=== PATIENT | male | born 1955 | race Caucasian/White ===

== ENCOUNTER 2018-02-23 08:02 | Emergency (ER) | payer BC, OTHER ==
[2018-02-23] MEDS ORDERED: ASPIRIN 81 MG TABLET, CHEWABLE PO ONE (08:23)
[2018-02-23 08:45] LABS: ABSOLUTE EOSINOPHILS # (AUTO) 0.1 10^3/uL (0.0-0.6); ABSOLUTE LYMPHOCYTES (AUTO) 1.8 10^3/uL (0.5-4.7); ABSOLUTE MONOCYTES (AUTO) 0.3 10^3/uL (0.1-1.4); ABSOLUTE NEUT (AUTO) 2.9 10^3/uL (1.7-8.2); BASOPHILS % (AUTO) 0.6 % (0-2); HEMATOCRIT 43.8 % (37.9-51.0); HEMOGLOBIN 14.5 g/dL (13.5-17.0); LYMPHOCYTES % (AUTO) 34.2 % (13-45); MEAN CORPUSCULAR HEMOGLOBIN 28.2 pg (27.0-33.4); MEAN CORPUSCULAR HGB CONC 33.1 g/dL (32.0-36.0); MEAN CORPUSCULAR VOLUME 85 fl (80-97); MONOCYTES % (AUTO) 5.9 % (3-13); PLATELET COUNT 222 10^3/uL (150-450); RED BLOOD COUNT 5.15 10^6/uL (4.35-5.55); RED CELL DISTRIBUTION WIDTH 13.5 % (11.5-14.0); SEGMENTED NEUTROPHILS % (AUTO) 57.3 % (42-78); TOTAL CELLS COUNTED % (AUTO) 100 %; WHITE BLOOD COUNT 5.2 10^3/uL (4.0-10.5)
--- NOTE | 2018-02-23 08:50 | RADIOLOGY REPORT (SQ) ---
EXAM DESCRIPTION: CHEST SINGLE VIEW COMPLETED DATE/TIME: 02/23/2018 8:43 am REASON FOR STUDY: cp COMPARISON: None. EXAM PARAMETERS: NUMBER OF VIEWS: One view. TECHNIQUE: Single frontal radiographic view of the chest acquired. RADIATION DOSE: NA LIMITATIONS: None. FINDINGS: LUNGS AND PLEURA: No opacities, masses or pneumothorax. No pleural effusion. MEDIASTINUM AND HILAR STRUCTURES: No masses. Contour normal. HEART AND VASCULAR STRUCTURES: Heart normal in size. Normal vasculature. BONES: No acute findings. HARDWARE: None in the chest. OTHER: No other significant finding. IMPRESSION: NO ACUTE RADIOGRAPHIC FINDING IN THE CHEST. TECHNICAL DOCUMENTATION: JOB ID: [id number] [employer]- All Rights Reserved Reading location - IP/workstation name: [email or web address]
[2018-02-23 08:53] LABS: ALANINE AMINOTRANSFERASE 42 U/L (21-72); ALBUMIN 4.6 g/dL (3.5-5.0); ALKALINE PHOSPHATASE 38 U/L (38-126); ANION GAP 9 (5-19); ASPARTATE AMINO TRANSFERASE 33 U/L (17-59); BILIRUBIN,DIRECT 0.2 mg/dL (0.0-0.4); BILIRUBIN,TOTAL 0.4 mg/dL (0.2-1.3); BLOOD UREA NITROGEN 16 mg/dL (7-20); CALCIUM 9.6 mg/dL (8.4-10.2); CARBON DIOXIDE 30 mmol/L (22-30); CHLORIDE 106 mmol/L (98-107); CREATINE KINASE 151 U/L (55-170); GLUCOSE 117 mg/dL (75-110); POTASSIUM 4.1 mmol/L (3.6-5.0); TOTAL PROTEIN 7.3 g/dL (6.3-8.2)
--- NOTE | 2018-02-23 08:59 | ER Document Report ---
ED Cardiac - General Mode of Arrival: Ambulatory Information source: Patient TRAVEL OUTSIDE OF THE [place] IN LAST 30 DAYS: No <WILLIE CASTORENA - Last Filed: 02/23/18 09:58> <NICOLE OCONNOR - Last Filed: 02/23/18 14:22> - General Chief Complaint: Chest Pain Stated Complaint: CHEST PRESSURE,FACIAL NUMBNESS Time Seen by Provider: 02/23/18 08:36 Notes: Patient is a 62-year-old male who presents to the emergency department today with complaints of "hallucinating like a daydream" prior to arrival today. Patient states yesterday he is very nauseated but did not have any other symptoms with it. Patient states he was taking a shower this morning and he began feeling very lightheaded and the left side of his jaw felt "unusual". Patient states it "feels I am having a heart attack but I have no chest pain". Patient denies any change in his lightheadedness with rapid head movement. ( WILLIE CASTORENA) - Related Data Allergies/Adverse Reactions: No Known Allergies Allergy (Verified 02/23/18 08:04) Past Medical History - General Information source: Patient - Social History Smoking Status: Never Smoker Cigarette use (# per day): No Chew tobacco use (# tins/day): No Frequency of alcohol use: Social Drug Abuse: None Lives with: Family Family History: Reviewed & Not Pertinent Patient has suicidal ideation: No Patient has homicidal ideation: No - Past Medical History Cardiac Medical History: Reports: Hx Hypercholesterolemia Pulmonary Medical History: Reports: Hx Asthma Surgical Hx: Negative - Immunizations Hx Diphtheria, Pertussis, Tetanus Vaccination: Yes <WILLIE CASTORENA - Last Filed: 02/23/18 09:58> Review of Systems - Review of Systems Constitutional: No symptoms reported EENT: No symptoms reported Cardiovascular: See HPI, Lightheaded. denies: Chest pain Respiratory: No symptoms reported Gastrointestinal: See HPI, Nausea Genitourinary: No symptoms reported Male Genitourinary: No symptoms reported Musculoskeletal: No symptoms reported Skin: No symptoms reported Hematologic/Lymphatic: No symptoms reported Neurological/Psychological: No symptoms reported -: Yes All other systems reviewed and negative <WILLIE CASTORENA - Last Filed: 02/23/18 09:58> Physical Exam - Vital signs Interpretation: Normal - General General appearance: Appears well, Alert - HEENT Head: Normocephalic, Atraumatic Eyes: Normal Pupils: PERRL Neck: No: Carotid bruit - Respiratory Respiratory status: No respiratory distress Chest status: Nontender Breath sounds: Normal Chest palpation: Normal - Cardiovascular Rhythm: Regular Heart sounds: Normal auscultation Murmur: No - Abdominal Inspection: Normal Distension: No distension Bowel sounds: Normal Tenderness: Nontender Organomegaly: No organomegaly - Back Back: Normal, Nontender - Extremities General upper extremity: Normal inspection, Nontender, Normal ROM. No: Edema General lower extremity: Normal inspection, Nontender, Normal ROM. No: Edema - Neurological Neuro grossly intact: Yes Cognition: Normal Orientation: AAOx4 [place] Coma Scale Eye Opening: Spontaneous [place] Coma Scale Verbal: Oriented [place] Coma Scale Motor: Obeys Commands [place] Coma Scale Total: 15 Speech: Normal - Psychological Associated symptoms: Normal affect, Normal mood - Skin Skin Temperature: Warm Skin Moisture: Dry Skin Color: Normal <WILLIE CASTORENA - Last Filed: 02/23/18 09:58> - Respiratory Chest status: No: Nontender Chest palpation: Tender - Point tender to palpate the left anterior chest wall.. No: Normal <NICOLE OCONNOR - Last Filed: 02/23/18 14:22> - Vital signs Vitals: Temp Pulse Resp BP Pulse Ox 98.4 F 75 16 134/74 H 99 02/23/18 08:17 02/23/18 08:17 02/23/18 08:17 02/23/18 08:17 02/23/18 08:17 Course - Laboratory Result Diagrams: 02/23/18 08:25 02/23/18 08:25 <WILLIE CASTORENA - Last Filed: 02/23/18 09:58> - Laboratory Result Diagrams: 02/23/18 08:25 02/23/18 08:25 - Diagnostic Test Radiology reviewed: Image reviewed, Reports reviewed - Chest x-ray does not show an acute process. CT scan of the brain is normal. RI of the brain is unremarkable. - EKG Interpretation by Nh EKG shows normal: Sinus rhythm, Page, Intervals, QRS Complexes, ST-T Waves Rate: Normal - 71 Rhythm: NSR Page/QRS: IVCD P Waves: LAE When compared to previous EKG there are: Previous EKG unavailable <NICOLE OCONNOR - Last Filed: 02/23/18 14:22> - Re-evaluation Re-evalutation: 02/23/18 11:36 At this time the patient states he feels a little bit better, but still seems to have the feeling like he is daydreaming or hallucinating. He does recall yesterday cleaning a fish pond with a brush and thinks that may be the reason why his chest is tender. Palpating the chest wall confirms that he is tender in his left anterior chest wall, however this does not explain his mental status /neurological symptoms. He never comes to the emergency room, he is not a complainer. He does have hyperlipidemia, does not smoke does not have high blood pressure. We will do an MRI of his head to exclude possibility of this being a neurological event. ( NICOLE OCONNOR) - Vital Signs Vital signs: Temp Pulse Resp BP Pulse Ox 98.4 F 75 14 163/95 H 98 02/23/18 08:17 02/23/18 08:17 02/23/18 12:00 02/23/18 12:00 02/23/18 12:00 - Laboratory Laboratory results interpreted by me: 02/23/18 08:25 Glucose 117 H Discharge <WILLIE CASTORENA - Last Filed: 02/23/18 09:58> <NICOLE OCONNOR - Last Filed: 02/23/18 14:22> - Discharge Clinical Impression: Difficulty concentrating, Chest wall pain Altered mental status, unspecified Qualifiers: Altered mental status type: unspecified Qualified Code(s): R41.82 - Altered mental status, unspecified Condition: Stable Disposition: HOME, SELF-CARE Additional Instructions: No clear explanation for your difficulty concentrating, and feeling like your daydreaming was found. Your brain scans were normal. Your chest pain appears to be coming from the left anterior chest wall, possibly related to the activity scrubbing out of fishpond yesterday. For today you should get plenty of rest, take Tylenol and ibuprofen for pain if needed. Follow-up with your medical doctor Sunday if not feeling better. RETURN TO THE EMERGENCY ROOM IF ANY NEW OR WORSENING SYMPTOMS. Referrals: GAVI LOVELACE MD [Primary Care Provider] - Follow up as needed Scribe Attestation: 02/23/18 09:41 I personally performed the services described in the documentation, reviewed and edited the documentation which was dictated to the scribe in my presence, and it accurately records my words and actions. (NICOLE OCONNOR) Scribe Documentation - Scribe Written by Scribe:: Janel Dominguez, 02/23/2018 1011 acting as scribe for :: Melvin <WILLIE CASTORENA - Last Filed: 02/23/18 09:58>
[2018-02-23 09:15] LABS: TROPONIN I < 0.012 ng/mL
--- NOTE | 2018-02-23 09:20 | RADIOLOGY REPORT (SQ) ---
EXAM DESCRIPTION: CT HEAD WITHOUT COMPLETED DATE/TIME: 02/23/2018 9:11 am REASON FOR STUDY: Lightheaded,hallucinating, difficult concentration COMPARISON: None. TECHNIQUE: Axial images acquired through the brain without intravenous contrast. Images reviewed wi th bone, brain and subdural windows. Additional sagittal and coronal reconstructions were generated. Images stored on PACS. All CT scanners at this facility use dose modulation, iterative reconstruction, and/or weight based d osing when appropriate to reduce radiation dose to as low as reasonably achievable (ALARA). [facility]: Dose Right [facility]: CareDose [facility]: Dose Right [facility]: Teradose 4D [facility]: Tour Desk RADIATION DOSE: CT Rad equipment meets quality standard of care and radiation dose reduction techniq ues were employed. CTDIvol: 53.2 mGy. DLP: 991 mGy-cm. mGy. LIMITATIONS: None. FINDINGS: VENTRICLES: Normal size and contour. CEREBRUM: No masses. No hemorrhage. No midline shift. No evidence for acute infarction. Normal gra y/white matter differentiation. No areas of low density in the white matter. CEREBELLUM: No masses. No hemorrhage. No alteration of density. No evidence for acute infarction. EXTRAAXIAL SPACES: No fluid collections. No masses. ORBITS AND GLOBE: No intra- or extraconal masses. Normal contour of globe without masses. CALVARIUM: No fracture. PARANASAL SINUSES: No fluid or mucosal thickening. SOFT TISSUES: No mass or hematoma. OTHER: No other significant finding. IMPRESSION: NORMAL BRAIN CT WITHOUT CONTRAST. EVIDENCE OF ACUTE STROKE: NO. COMMENT: Quality ID # [id number]: Final reports with documentation of one or more dose reduction techniques (e.g., Automated exposure control, adjustment of the mA and/or kV according to patient size, use of iterative reconstruction technique) TECHNICAL DOCUMENTATION: JOB ID: [id number] [employer]- All Rights Reserved Reading location - IP/workstation name: [email or web address]
--- NOTE | 2018-02-23 13:43 | RADIOLOGY REPORT (SQ) ---
EXAM DESCRIPTION: MRI HEAD WITHOUT COMPLETED DATE/TIME: 02/23/2018 1:28 pm REASON FOR STUDY: Diff concentrating,lightheaded,feels like daydream COMPARISON: CT dated 02/23/2018. TECHNIQUE: Multiplanar imaging includes non-contrasted T1, T2, FLAIR, and diffusion with ADC map seq uences. Images stored on PACS. LIMITATIONS: None. FINDINGS: ANATOMY: No anomalies. Normal vascular flow voids. Pituitary fossa normal. CSF SPACES: Normal in size and contour. No hemorrhage. CEREBRUM: Sulci and gyri normal in size and contour. Normal white matter signal on FLAIR imaging. No evidence of hemorrhage, mass, or extraaxial fluid collection. POSTERIOR FOSSA: No signal alteration. No hemorrhage. No edema, masses or mass effect. Internal bob tory canals, cerebello-pontine angles, mastoids normal. DIFFUSION IMAGING: Negative for acute or sub-acute infarction. ORBITS: No masses. Globes normal. PARANASAL SINUSES: No fluid levels. Mucosa normal. OTHER: No other significant finding. IMPRESSION: NORMAL MRI OF THE BRAIN WITHOUT INTRAVENOUS GADOLINIUM CONTRAST. EVIDENCE OF ACUTE STROKE: NO. TECHNICAL DOCUMENTATION: JOB ID: [id number] [employer]- All Rights Reserved Reading location - IP/workstation name: [email or web address]
[2018-02-23 14:44] VITALS: BP 140/79
--- NOTE | 2018-02-23 20:34 | EKG REPORT ---
SEVERITY:- ABNORMAL ECG - SINUS RHYTHM PROBABLE LEFT ATRIAL ABNORMALITY NONSPECIFIC INTRAVENTRICULAR CONDUCTION DELAY : Confirmed by: Carina Coffey 23-Feb-2018 17:33:52
== END 2018-02-23 14:44 | disposition home or self-care (01) ==
LOC: ER 08:02
DX: R07.89 Other chest pain (principal); R41.82 Altered mental status, unspecified; R29.818 Other symptoms and signs involving the nervous system; R42 Dizziness and giddiness; J45.909 Unspecified asthma, uncomplicated; R11.0 Nausea; E78.5 Hyperlipidemia, unspecified
CPT/HCPCS: 36415; 70450; 70551; 71045; 80053; 82550; 82553; 84484; 85025; 93005; 93010; 99285